=== PATIENT | male | born 1960 | race Caucasian/White ===

== ENCOUNTER 2021-02-19 10:05 | Emergency (ER) | payer MEDICARE, OTHER ==
[~2021-02-19] VITALS: Ht 177.8 cm; Wt 93.8 kg
[2021-02-19 10:18] VITALS: BP 193/93
[2021-02-19] MEDS ORDERED: ACETAMINOPHEN 500 MG TABLET ONE (12:27)
[2021-02-19] MEDS ORDERED: NAPROXEN 500 MG TABLET ONE (12:27)
[2021-02-19] MEDS ORDERED: NAPROXEN 500 MG TABLET PO ONE (12:30)
[2021-02-19] MEDS ORDERED: ACETAMINOPHEN 500 MG TABLET PO ONE (12:30)
== END 2021-02-19 13:06 | disposition home or self-care (01) ==
LOC: ED 13:05
DX: S16.1XXA Strain of muscle, fascia and tendon at neck level, initial encounter (principal); M25.511 Pain in right shoulder; R51.9 Headache, unspecified; F17.210 Nicotine dependence, cigarettes, uncomplicated; W11.XXXA Fall on and from ladder, initial encounter; Y93.89 Activity, other specified; Y92.009 Unspecified place in unspecified non-institutional (private) residence as the place of occurrence of the external cause; Y99.8 Other external cause status
CPT/HCPCS: 70450; 72125; 99285

== ENCOUNTER 2021-03-01 09:00 | Emergency (ER) | payer MEDICARE, OTHER ==
[~2021-03-01] VITALS: Ht 182.9 cm; Wt 95.5 kg
--- NOTE | 2021-03-01 09:02 | NUR ---
NOT IN LOBBY AT FIRST ATTEMPT TO CALL INTO TRIAGE.
--- NOTE | 2021-03-01 10:00 | NUR ---
Ana RN: Pt ambulatory to room from buzz ricardo steady
[2021-03-01] MEDS ORDERED: HYDROcodone/APAP 5/325 TABLET ONE (10:23)
[2021-03-01] MEDS ORDERED: KETOROLAC 60 MG/2 ML ONE (10:23)
[2021-03-01] MEDS ORDERED: KETOROLAC 30 MG/1 ML IM ONE (10:30)
[2021-03-01] MEDS ORDERED: HYDROcodone/APAP 5/325 TABLET PO ONE (10:30)
[2021-03-01 10:32] VITALS: BP 169/98
--- NOTE | 2021-03-01 10:43 | NUR ---
PT MEDICATED PER ERP ORDER. VSS, BP IMPROVED, UPDATED IN COMPUTER. ERP NOTIFIED. CALL LIGHT WITHIN REACH.
== END 2021-03-01 11:08 | disposition home or self-care (01) ==
LOC: ED 10:13
DX: S16.1XXA Strain of muscle, fascia and tendon at neck level, initial encounter (principal); R51.9 Headache, unspecified; F17.200 Nicotine dependence, unspecified, uncomplicated; X58.XXXA Exposure to other specified factors, initial encounter; Y93.89 Activity, other specified; Y92.89 Other specified places as the place of occurrence of the external cause; Y99.8 Other external cause status
CPT/HCPCS: 96372; 99283; J1885

== ENCOUNTER 2021-03-17 07:26 | Emergency (ER) | payer MEDICARE ==
[~2021-03-17] VITALS: Ht 182.9 cm; Wt 93.3 kg
[2021-03-17 07:36] VITALS: BP 152/70
[2021-03-17] MEDS ORDERED: KETOROLAC 30 MG/1 ML IM ONE (08:00)
[2021-03-17] MEDS ORDERED: ACETAMINOPHEN 500 MG TABLET PO ONE (08:00)
[2021-03-17] MEDS ORDERED: CYCLOBENZAPRINE 10 MG TABLET PO ONE (08:00)
[2021-03-17] MEDS ORDERED: KETOROLAC 60 MG/2 ML ONE (08:28)
[2021-03-17] MEDS ORDERED: ACETAMINOPHEN 500 MG TABLET ONE (08:29)
[2021-03-17] MEDS ORDERED: CYCLOBENZAPRINE 10 MG TABLET ONE (08:29)
--- NOTE | 2021-03-17 08:53 | NUR ---
PT PRESENTS TO ED WITH C/O PERSISTENT NECK PAIN, INTERMITTENT HEADACHE AND RIGHT THUMB NUMBNESS PRESENT SINCE FALL OFF LADDER ONE MONTH AGO. PT IS A&OX4, NEUROLOGICALLY INTACT, NO FOCAL DEFICITS. CMS INTACT TO BILATERAL UE, CAP REFILL <3 SEC. PT IS FRUSTRUATED, SEEEKING RX FOR NARCOTIC PAIN MED. PT EDUCATED REGARDING POC AND DC RX FOR PREDNISONE, FLEXIRIL, TYLENOL, IBUPROFEN AND ATENOLOL (PT SEEKING REFILL). PT AGREEABLE TO POC AND DC RX. PT REFUSES FLEXIRIL STATING HE HAS AT HOME "AND THEY DON'T WORK". PT AMBULATORY TO DC DESK WITH STEADY GAIT WITH NO DIFFICULTY. ALL QUESTIONS ANSWERED. PT OFFERED ORTHO FOLLOW UP, REFUSES. PT HAS PCP APPT 04/16, STATES HE WILL SEEK FOLLOW UP THROUGH PCP.
== END 2021-03-17 08:52 | disposition home or self-care (01) ==
LOC: ED 08:45
DX: R51.9 Headache, unspecified (principal); Z76.0 Encounter for issue of repeat prescription; M54.12 Radiculopathy, cervical region
CPT/HCPCS: 96372; 99283; J1885